=== PATIENT | male | born 1975 | race Caucasian/White ===

== ENCOUNTER 2019-09-10 13:50 | Emergency (ER) | payer SELFPAY ==
[~2019-09-10] VITALS: Ht 175.3 cm; Wt 85.7 kg
[2019-09-10 14:50] VITALS: BP_SYST 143
--- NOTE | 2019-09-10 14:50 | NUR ---
Pt to ER bed 8 via w/c screaming in pain for intermittent leg cramping. Denies injury. States they started around 1230. BIB from home. Denies injury, no recent trauma
[2019-09-10] MEDS ORDERED: KETOROLAC TROMETHAMINE 60 MG/2 ML VIAL IM ONE (15:00)
[2019-09-10] MEDS ORDERED: LORazepam 2 MG/ML VIAL IM ONE (15:00)
--- NOTE | 2019-09-10 15:09 | NUR ---
Medicated for cramping to right thigh per MD orders.
--- NOTE | 2019-09-10 16:07 | NUR ---
PT resting, no acute distress. Arrousable by voice and light touch. at bedside. states pt might be having some mild cramping because he gets figity sometimes. Pt calm, breathing even unlabored. VSS.
--- NOTE | 2019-09-10 17:13 | NUR ---
Per electronic test technician, unable to do CT since patient very anxious and moving, notified.
[2019-09-10] MEDS ORDERED: MORPHINE 2 MG/ML INJ. SYRINGE IM ONE (18:00)
[2019-09-10] MEDS ORDERED: CYCLOBENZAPRINE HCL 10 MG TABLET (FLEXERIL) PO ONE (20:30)
[2019-09-10] MEDS ORDERED: ONDANSETRON HCL 4 MG/2 ML VIAL IVP ONE (20:30)
[2019-09-10] MEDS ORDERED: MORPHINE 2 MG/ML INJ. SYRINGE IVP ONE (20:30)
--- NOTE | 2019-09-10 20:31 | NUR ---
Dr. Abdi at bedside assessing patient
[2019-09-10 20:51] LABS: BASOPHILS % (AUTO) 0.2 % (0.0-2.0); HEMATOCRIT 37.3 % (36-54); HEMOGLOBIN 12.8 g/dL (14.0-18.0); LYMPHOCYTES # (AUTO) 0.6 K/uL (1.0-5.5); LYMPHOCYTES % (AUTO) 7.6 % (20.5-51.5); MEAN CORPUSCULAR HEMOGLOBIN 31 pg (27-31); MEAN CORPUSCULAR HGB CONC 34 % (32-36); MEAN CORPUSCULAR VOLUME 89 fL (79.0-98.0); MONOCYTES # (AUTO) 0.6 K/uL (0.0-1.0); MONOCYTES % (AUTO) 8.3 % (1.7-9.3); NEUTROPHILS # (AUTO) 6.3 K/uL (1.8-7.7); NEUTROPHILS % (AUTO) 83.9 % (40.0-70.0); PLATELET COUNT (AUTO) 204 K/uL (130-430); RED BLOOD CELL COUNT(AUTO) 4.18 MIL/uL (4.2-6.2); WHITE BLOOD COUNT (AUTO) 7.5 K/uL (4.8-10.8)
--- NOTE | 2019-09-10 20:52 | NUR ---
# 20 gauge angiocath placed to RT AC. Use of asceptic technique. Opsite placed over site. Blood return noted. Flushed with 10 cc of normal saline. No evidence of infiltration noted. Patient tolerated well.
[2019-09-10 21:10] LABS: CALCIUM 8.9 mg/dL (8.4-11.0); CREATININE 0.81 mg/dL (0.55-1.30); POTASSIUM 3.2 mmol/L (3.5-5.1)
[2019-09-10 21:24] LABS: ALBUMIN 3.7 g/dL (3.4-4.8); TOTAL BILIRUBIN 0.9 mg/dL (0.0-1.0)
--- NOTE | 2019-09-10 21:37 | NUR ---
Pt is sleeping in bed, no acute distress noted at this time. Will continue to monitor.
[2019-09-10] MEDS ORDERED: POTASSIUM CHLORIDE 20 MEQ TAB.PRT.SR PO ONE (22:15)
[2019-09-10 23:22] LABS: CKMB RELATIVE INDEX 0.7 (0.0-2.9)
--- NOTE | 2019-09-10 23:51 | NUR ---
Dr. Abdi at bedside re-evaluating patient
--- NOTE | 2019-09-11 00:51 | NUR ---
Pt has been given discharge information and is awaiting transportation
[2019-09-11 01:25] VITALS: BP_SYST 152
--- NOTE | 2019-09-11 01:25 | NUR ---
Patient given written and verbal discharge instructions and verbalizes understanding. ER MD discussed with patient the results and treatment provided. Patient in stable condition. ID arm band removed. IV catheter removed intact and dressing applied, no active bleeding. Rx of Zofran and Broseley given. Patient educated on pain management and to follow up with PMD. Pain Scale 0. Opportunity for questions provided and answered. Medication side effect fact sheet provided.
== END 2019-09-11 01:25 | disposition home or self-care (01) ==
LOC: SED 13:50
DX: M54.31 Sciatica, right side (principal); M87.851 Other osteonecrosis, right femur; M87.852 Other osteonecrosis, left femur; Z90.49 Acquired absence of other specified parts of digestive tract; F15.90 Other stimulant use, unspecified, uncomplicated
CPT/HCPCS: 36415; 72192; 80053; 82550; 82553; 85025; 96372; 96374; 96375; 99284; J1885; J2060; J2270; J2405